=== PATIENT | male | born 1970 | race American Indian/Alaskan Native ===

== ENCOUNTER 2019-11-07 08:57 | Emergency (ER) | payer OTHER ==
[~2019-11-07] VITALS: Ht 167.6 cm; Wt 72.6 kg
[2019-11-07] MEDS ORDERED: LISINOPRIL2.5 MG PO (09:10)
[2019-11-07] MEDS ORDERED: TOPROL XL25 MG PO (09:11)
[2019-11-07] MEDS ORDERED: BUPROPION XL300 MG PO (09:11)
[2019-11-07] MEDS ORDERED: DOXYCYCLINE 10100 M2 PO (09:31)
[2019-11-07 09:42] VITALS: BP 134/90
== END 2019-11-07 09:47 | disposition home or self-care (01) ==
LOC: M.ERS 08:57
DX: S80.862A Insect bite (nonvenomous), left lower leg, initial encounter (principal); I10 Essential (primary) hypertension; J45.909 Unspecified asthma, uncomplicated; F17.210 Nicotine dependence, cigarettes, uncomplicated; Z88.0 Allergy status to penicillin; W57.XXXA Bitten or stung by nonvenomous insect and other nonvenomous arthropods, initial encounter; Y93.89 Activity, other specified; Y92.89 Other specified places as the place of occurrence of the external cause; Y99.8 Other external cause status

== ENCOUNTER 2020-11-13 08:33 | Emergency (ER) | payer OTHER ==
[~2020-11-13] VITALS: Ht 170.2 cm; Wt 60.8 kg
[~2020-11-13 08:33] MED LIST: BUPROPION XL300 MG PO; DOXYCYCLINE 10100 M2 PO; LISINOPRIL2.5 MG PO; TOPROL XL25 MG PO
[2020-11-13 08:54] LABS: ABSOLUTE LYMPHOCYTES 0.5 thou/uL (0.8-5.3); ABSOLUTE MONOCYTES 0.4 thou/uL (0.0-1.2); ABSOLUTE NEUTROPHILS 4.3 thou/uL (1.6-8.1); BASOPHILS 0.2 %; LYMPHOCYTES 9.8 %; MCH 34.1 pg (26.0-34.0); MCHC 35.4 g/dL (28.0-37.0); MCV 96.4 fL (80.0-100.0); MONOCYTES 8.1 %; NUCLEATED RBCS 0 /100WBC; PLATELET COUNT* 180 thou/uL (150-400); POLYS 81.9 %; RBC 4.98 mil/uL (4.50-6.00); RDW-CV 12.6 % (10.5-14.5); WBC 5.2 thou/uL (4.0-11.0)
[2020-11-13 09:09] LABS: CALCIUM 8.8 mg/dL (8.5-10.1); CREATININE 0.7 mg/dL (0.6-1.3); POTASSIUM 3.1 mmol/L (3.5-5.1)
[2020-11-13 09:13] LABS: ALBUMIN 4.5 g/dL (3.4-5.0); TOTAL BILIRUBIN 1.2 mg/dL (<0.1-1.0); TOTAL PROTEIN 7.8 g/dL (6.4-8.2)
[2020-11-13 10:28] LABS: URINE BILIRUBIN NEGATIVE (Negative); URINE BLOOD NEGATIVE (Negative); URINE CLARITY CLEAR; URINE COLOR YELLOW; URINE GLUCOSE-RANDOM NEGATIVE (Negative); URINE KETONES 1+ (Negative); URINE LEUKOCYTES NEGATIVE (Negative); URINE NITRITE NEGATIVE (Negative); URINE PROTEIN NEGATIVE (Negative); URINE SPECIFIC GRAVITY <= 1.005 (1.005-1.030); URINE UROBILINOGEN 0.2 E.U./dl (0.2-1.0)
[2020-11-13 10:36] LABS: AMP/METHAMP Negative (Negative); BARBITURATES Negative (Negative); BENZODIAZEPINES Negative (Negative); COCAINE Negative (Negative); METHADONE Negative (Negative); OPIATES Negative (Negative); PCP Negative (Negative); THC Negative (Negative)
[2020-11-13 11:18] LABS: CALCIUM 8.2 mg/dL (8.5-10.1); CREATININE 0.5 mg/dL (0.6-1.3); POTASSIUM 5.1 mmol/L (3.5-5.1)
[2020-11-13 12:15] VITALS: BP 139/87
--- NOTE | 2020-11-13 14:00 | EKG ---
[place] [address] ELECTROCARDIOGRAM REPORT Name: RAJESH MAR Room: [facility]#: [id number] Admission: 11/13/20 Attend Phys: Discharge: 11/13/20 Date of : 72 Date of Service: 11/13/20 0839 Report #: [id number] THIS REPORT FOR: //name// [facility] ED Test Date: 2020-11-13 Test Time: 08:39:42 Pat Name: RAJESH MAR Department: Room: Gender: Nail Artist: [facility] : 1970 Requested By: Steven Ware Order Number: [id number] MD: Mukul Madrid Measurements Intervals [place] Rate: 107 P: 60 [place]: 138 QRS: -20 QRSD: 93 T: 60 QT: 322 QTc: 430 Interpretive Statements Sinus tachycardia Probable left atrial enlargement Borderline left axis deviation Nonspecific T abnormalities, lateral leads No previous ECG available for comparison Electronically Signed On 11-13-2020 14:00:43 CDT by Mukul Madrid [email or web address] <ELECTRONICALLY SIGNED> By: Mukul Madrid MD, [facility] 11/13/20 1400 0839 0839 Mukul Madrid MD, [facility] /EPI
== END 2020-11-13 12:15 | disposition home or self-care (01) ==
LOC: M.ERS 08:33
PROVIDERS: Emergency Medicine
DX: E87.2 Acidosis (principal); R00.2 Palpitations; I10 Essential (primary) hypertension; J45.909 Unspecified asthma, uncomplicated; F17.210 Nicotine dependence, cigarettes, uncomplicated; Z88.0 Allergy status to penicillin